=== PATIENT | female | born 1975 | race Caucasian/White ===

== ENCOUNTER 2017-02-14 11:20 | Emergency (ER) | payer SELFPAY ==
[2017-02-14] MEDS ORDERED: LIDOCAINE 2% 10 ML MDV SUBQ STA (12:57)
--- NOTE | 2017-02-14 13:00 | ED Physician Documentation ---
History of Present Illness - Stated complaint Stated Complaint: HAND LAC - Chief complaint Chief Complaint: Laceration - History obtained from History obtained from: Patient - History of Present Illness Timing: Today, How many hours ago (1) Pain level max: 3 Pain level now: 3 - Additonal information Additional information: Patient is a 41-year-old female who cut the dorsal aspect of the right fifth digit on a can today. Bleeding controlled. Tetanus is up-to-date. She is right-handed. Has full range of motion. Better with pressure and worse with movement. Review of Systems Neurologic: denies: Focal weakness, Numbness PD PAST MEDICAL HISTORY - Past Medical History Past Medical History: No Cardiovascular: None Neuro: None Psych: None Musculoskeletal: None - Past Surgical History Past Surgical History: No - Present Medications Home Medications: Ambulatory Orders Medication Instructions Recorded Confirmed HYDROcod/ACETAM 5/325 [[place] 5/325] 1 - 2 ea PO Q6H PRN #15 tablet 12/16/15 - Allergies Allergies/Adverse Reactions: Allergies Allergy/AdvReac Type Severity Reaction Status Date / Time No Known Drug Allergies Allergy Verified 12/16/15 14:53 - Social History Does the pt smoke?: No Smoking Status: Never smoker Does the pt drink ETOH?: Yes ETOH Use: Liquor Does the pt have substance abuse?: No - Immunizations Immunizations are current?: Yes - POLST Patient has POLST: No PD ED PE NORMAL - Vitals Vital signs reviewed: Yes - General General: Alert and oriented X 3, No acute distress - Derm Derm: Warm and dry - Neuro Neuro: Alert and oriented X 3 - Psych Psych: Normal mood PD ED PE EXPANDED - Extremities CONCHA UE/Hands Visual: 1 - laceration (1.5cm, linear, subcutaneous, NVI. No tendon injury.) Results - Vitals Vitals: Vital Signs - 24 hr 02/14/17 02/14/17 11:29 13:30 Temperature 36.9 C 36.3 C L Heart Rate 86 82 Respiratory 14 20 Rate Blood Pressure 103/58 L 107/70 O2 Saturation 94 99 Oxygen O2 Source Room air Procedures - Laceration (location) R 5th digit Length in cm: 1.5 Wound type: Linear, Into subcut fat, Clean Neurovascular status: Sensory intact, Motor intact, Vascular intact Tendon involvement: Tendon intact. No: Tendon Injury Anesthesia: Lidocaine 2% Wound Preparation: Irrigated copiously NS Skin layer closure: Nylon, Size #-0 - enter number (4), Sutures - enter # (3) Other: Patient tolerated well, No complications, Neurovascular intact, Dressing applied, Tetanus UTD Complexity: Simple PD MEDICAL DECISION MAKING - ED course Complexity details: considered differential, d/w patient ED course: Laceration repaired. Tolerated well. Warnings of infection and instructions on wound care given at bedside. Also counseled on how to minimize scarring. Patient counseled regarding signs and symptoms for which I believe and urgent re -evaluation would be necessary. Patient with good understanding of and agreement to plan and is comfortable going home at this time This document was made in part using voice recognition software. While efforts are made to proofread this document, sound alike and grammatical errors may occur. Neurovascularly intact. No tendon injury. Departure - Departure Disposition: 01 Home, Self Care Clinical Impression: Finger laceration Qualifiers: Encounter type: initial encounter Finger: little finger Damage to nail status: without damage Foreign body presence: without foreign body Laterality: right Qualified Code(s): S61.216A - Laceration without foreign body of right little finger without damage to nail, initial encounter Condition: Good Instructions: ED Laceration Hand Follow-Up: your,doctor in 10-14 days for suture removal [Other] Comments: Return if you worsen. You can remove the splint in 2-3 days. Keep the wound clean. Return if you notice redness, swelling or drainage from the wound. The stitches should be removed in 10-14 days either here or with your doctor. Discharge Date/Time: 02/14/17 13:28
[2017-02-14] MEDS ORDERED: BACITRACIN OINT TOP ONE (13:22)
[2017-02-14 13:31] VITALS: BP 107/70
== END 2017-02-14 13:28 | disposition home or self-care (01) ==
LOC: ED 11:20
DX: S61.216A Laceration without foreign body of right little finger without damage to nail, initial encounter (principal); W26.8XXA Contact with other sharp object(s), not elsewhere classified, initial encounter
CPT/HCPCS: 12001; 99282; 99283; A9270

== ENCOUNTER 2017-08-11 12:16 | Emergency (ER) | payer MEDICAID ==
[2017-08-11 12:55] LABS: BASOPHILS % (AUTO) 0.6 %; EOSINOPHILS % (AUTO) 0.4 %; HGB - HEMOGLOBIN 12.4 g/dL (12.0-16.0); LYMPHOCYTES # (AUTO) 1.8 10^3/uL (1.5-3.5); LYMPHOCYTES % (AUTO) 28.5 %; MEAN CORPUSCULAR HEMOGLOBIN 31.3 pg (27.0-31.0); MEAN CORPUSCULAR HGB CONC 33.8 g/dL (32.0-36.0); MEAN CORPUSCULAR VOLUME 92.5 fL (81.0-99.0); MONOCYTES # (AUTO) 0.9 10^3/uL (0.0-1.0); MONOCYTES % (AUTO) 14.9 %; NEUTROPHILS # (AUTO) 3.5 10^3/uL (1.5-6.6); NEUTROPHILS % (AUTO) 55.6 %; PLT - PLATELET COUNT 335 10^3/uL (130-450); RED BLOOD COUNT 3.95 10^6/uL (4.20-5.40); RED CELL DISTRIBUTION WIDTH 13.3 % (12.0-15.0); WHITE BLOOD COUNT 6.2 x10^3/uL (4.8-10.8)
[2017-08-11 13:07] LABS: ALBUMIN 3.9 g/dL (3.2-5.5); BILIRUBIN,TOTAL 0.4 mg/dL (0.2-1.0); CREATININE 0.7 mg/dL (0.4-1.0)
[2017-08-11 13:44] LABS: BILIRUBIN,URINE NEGATIVE (NEGATIVE); GLUCOSE, URINE (UA) NEGATIVE (NEGATIVE); KETONES,URINE (UA) NEGATIVE (NEGATIVE); LEUKOCYTE ESTERASE, URINE SMALL (NEGATIVE); NITRITE,URINE POSITIVE (NEGATIVE); OCCULT BLOOD,URINE LARGE (NEGATIVE); PROTEIN,URINE NEGATIVE (NEGATIVE); UROBILINOGEN,URINE 0.2 (NORMAL) E.U./dL (NORMAL)
[2017-08-11 13:48] LABS: CLARITY,URINE HAZY (CLEAR); HCG UR QUAL NEGATIVE
[2017-08-11 13:57] LABS: BACTERIA,URINE Many /HPF (None Seen); RBC,URINE 0-5 /HPF (0-5); SQUAMOUS EPITHELIAL CELL,UR MOD Squamous (<= Few)
[2017-08-11 13:58] LABS: AMORPHOUS SEDIMENT,UR Few /LPF
[2017-08-11] MEDS ORDERED: SODIUM CHLORIDE 0.9% 1,000 ML IV ONE (14:07)
[2017-08-11] MEDS ORDERED: ONDANSETRON 4 MG/2 ML VIAL IVP STA (14:07)
[2017-08-11] MEDS ORDERED: HYDROmorphone 2 MG/ML VIAL IVP STA (14:07)
[2017-08-11] MEDS ORDERED: cefTRIAXone 2 GM in SODIUM CHLORIDE 0.9% MINIBAG 100 ML IV STA (14:07)
--- NOTE | 2017-08-11 14:10 | ED Physician Documentation ---
PD HPI HEADACHE - Stated complaint Stated Complaint: HEADACHE X 4 DAYS - Chief complaint Chief Complaint: Neuro - History obtained from History obtained from: Patient - History of Present Illness Timing - onset: Other (Over the last 4 days she developed a stomachache in the lower abdomen followed by a gradual onset but now severe headache which is worse than her abdominal pain. She had a fever to 102 last night and has neck stiffness. She has light sensitivity but no vomiting. She denies a history of migraines. She has never had to come to the ER for headache before. She has a very mild sore throat but no runny nose or recent travel.) Review of Systems Constitutional: reports: Fever, Chills, Myalgias, Fatigue Ears: denies: Ear pain, Drainage/discharge Nose: denies: Rhinorrhea / runny nose, Congestion Throat: reports: Sore throat Respiratory: denies: Cough GI: reports: Abdominal Pain. denies: Nausea, Vomiting, Constipation, Diarrhea, Hematemesis : reports: LMP (Just finished her menses, normal time and normal flow.) Skin: denies: Rash, Lesions PD PAST MEDICAL HISTORY - Past Medical History Cardiovascular: None Psych: None Musculoskeletal: None - Past Surgical History Past Surgical History: No - Present Medications Home Medications: Ambulatory Orders Medication Instructions Recorded Confirmed HYDROcod/ACETAM 5/325 [[place] 5/325] 1 - 2 ea PO Q6H PRN #15 tablet 12/16/15 Ciprofloxacin HCl [Cipro] 500 mg PO BID #14 tablet 08/11/17 SUMAtriptan [Imitrex] 25 mg PO BID PRN #10 tablet 08/11/17 - Allergies Allergies/Adverse Reactions: Allergies Allergy/AdvReac Type Severity Reaction Status Date / Time No Known Drug Allergies Allergy Verified 08/11/17 12:23 - Social History Does the pt smoke?: No Smoking Status: Never smoker Does the pt drink ETOH?: Yes Does the pt have substance abuse?: No - Family History Family history: reports: Non contributory - Immunizations Immunizations are current?: Yes - POLST Patient has POLST: No PD ED PE NORMAL - Vitals Vital signs reviewed: Yes (Tachycardic, afebrile) - General General: Alert and oriented X 3, Other (Obviously in pain with a stiff neck) - HEENT HEENT: PERRL, EOMI - Neck Neck: Other (She has overt neck stiffness but is able to touch her chin to her chest.) - Cardiac Cardiac: RRR, No murmur - Respiratory Respiratory: No respiratory distress, Clear bilaterally - Abdomen Abdomen: Other (Mild bilateral pelvic tenderness, left greater than right) - Back Back: No CVA TTP, No spinal TTP - Derm Derm: Normal color, Warm and dry - Extremities Extremities: No deformity, No tenderness to palpate, No edema, No calf tenderness / cord - Neuro Neuro: Alert and oriented X 3 Eye Opening: Spontaneous Motor: Obeys Commands Verbal: Oriented GCS Score: 15 - Psych Psych: Normal mood, Normal affect Results - Vitals Vitals: Vital Signs - 24 hr 08/11/17 08/11/17 08/11/17 12:21 14:31 16:11 Temperature 36.6 C 36.8 C Heart Rate 127 H 88 96 Respiratory 20 14 16 Rate Blood Pressure 136/96 H 117/83 H 98/63 O2 Saturation 94 100 97 08/11/17 08/11/17 08/11/17 16:16 16:27 17:17 Temperature 37.1 C Heart Rate 90 92 Respiratory 16 16 Rate Blood Pressure 98/64 94/61 O2 Saturation 95 95 08/11/17 17:47 Temperature Heart Rate 80 Respiratory 14 Rate Blood Pressure 94/43 L O2 Saturation 95 Oxygen O2 Source Room air - Labs Labs: Laboratory Tests 08/11/17 08/11/17 08/11/17 12:20 12:34 12:34 WBC 6.2 RBC 3.95 L Hgb 12.4 Hct 36.5 L MCV 92.5 MCH 31.3 H MCHC 33.8 RDW 13.3 Plt Count 335 MPV 8.0 Neut # (Auto) 3.5 Lymph # (Auto) 1.8 [place] # (Auto) 0.9 Eos # (Auto) 0.0 Baso # (Auto) 0.0 Absolute Nucleated RBC 0.00 Nucleated RBC % 0.0 Sodium 138 Potassium 3.7 Chloride 104 Carbon Dioxide 27 Anion Gap 7.0 BUN 6 Creatinine 0.7 Estimated GFR (MDRD) 92 Glucose 109 H Lactic Acid Calcium 9.0 Total Bilirubin 0.4 AST 16 ALT 14 Alkaline Phosphatase 40 L Total Protein 8.0 Albumin 3.9 Globulin 4.1 Albumin/Globulin Ratio 1.0 Lipase 30 Urine Color YELLOW Urine Clarity HAZY Urine pH 6.0 Ur Specific [place] 1.020 Urine Protein NEGATIVE Urine Glucose (UA) NEGATIVE Urine Ketones NEGATIVE Urine Occult Blood LARGE H Urine Nitrite POSITIVE H Urine Bilirubin NEGATIVE Urine Urobilinogen 0.2 (NORMAL) Ur Leukocyte Esterase SMALL H Urine RBC 0-5 Urine WBC >25 H Ur Squamous Epith Cells MOD Squamous H Amorphous Sediment Few Urine Bacteria Many H Ur Microscopic Review INDICATED Urine Culture Comments NOT INDICATED Urine HCG, Qual NEGATIVE CSF Color CSF Clarity Xanthrochromic CSF WBC CSF RBC CSF Cell Count Tube # CSF Glucose CSF Total Protein 08/11/17 08/11/17 14:25 16:10 WBC RBC Hgb Hct MCV MCH MCHC RDW Plt Count MPV Neut # (Auto) Lymph # (Auto) [place] # (Auto) Eos # (Auto) Baso # (Auto) Absolute Nucleated RBC Nucleated RBC % Sodium Potassium Chloride Carbon Dioxide Anion Gap BUN Creatinine Estimated GFR (MDRD) Glucose Lactic Acid 0.6 Calcium Total Bilirubin AST ALT Alkaline Phosphatase Total Protein Albumin Globulin Albumin/Globulin Ratio Lipase Urine Color Urine Clarity Urine pH Ur Specific [place] Urine Protein Urine Glucose (UA) Urine Ketones Urine Occult Blood Urine Nitrite Urine Bilirubin Urine Urobilinogen Ur Leukocyte Esterase Urine RBC Urine WBC Ur Squamous Epith Cells Amorphous Sediment Urine Bacteria Ur Microscopic Review Urine Culture Comments Urine HCG, Qual CSF Color COLORLESS CSF Clarity CLEAR Xanthrochromic ABSENT CSF WBC 1 CSF RBC 1 CSF Cell Count Tube # CSF TUBE# 3 CSF Glucose 57 CSF Total Protein 37 - Rads (name of study) CT Head Radiology: EMP read contemporaneously (normal) Procedures - Lumbar Puncture Position: Laying right side Location: L3-L4 Anesthesia: Local lidocaine CSF: Clear Other: Sterile prep and drape, Patient tolerated well, No complications PD MEDICAL DECISION MAKING - ED course ED course: 42-year-old woman presents with headache in the setting of fever and lower abdominal pain and neck stiffness. The foremost concern after my evaluation was meningitis and she was treated with Rocephin. Labs were drawn and notable for infected UA and this was followed by a head CT which was negative and a spinal tap which was also negative. We had difficulty controlling her headache here, Dilaudid, Toradol, and over met were ineffective but after Reglan she was pain-free. - Sepsis Event Vital Signs: Vital Signs - 24 hr 08/11/17 08/11/17 08/11/17 12:21 14:31 16:11 Temperature 36.6 C 36.8 C Heart Rate 127 H 88 96 Respiratory 20 14 16 Rate Blood Pressure 136/96 H 117/83 H 98/63 O2 Saturation 94 100 97 08/11/17 08/11/17 08/11/17 16:16 16:27 17:17 Temperature 37.1 C Heart Rate 90 92 Respiratory 16 16 Rate Blood Pressure 98/64 94/61 O2 Saturation 95 95 08/11/17 17:47 Temperature Heart Rate 80 Respiratory 14 Rate Blood Pressure 94/43 L O2 Saturation 95 Oxygen O2 Source Room air Departure - Departure Disposition: 01 Home, Self Care Clinical Impression: UTI (urinary tract infection) Qualifiers: Urinary tract infection type: acute pyelonephritis Qualified Code(s): N10 - Acute pyelonephritis Migraine Qualifiers: Migraine type: without aura Status migrainosus presence: with status migrainosus Intractability: not intractable Qualified Code(s): G43.001 - Migraine without aura, not intractable, with status migrainosus Condition: Stable Instructions: ED UTI Pyelonephritis Male Prescriptions: Ciprofloxacin HCl [Cipro] 500 mg PO BID #14 tablet SUMAtriptan [Imitrex] 25 mg PO BID PRN #10 tablet PRN Reason: Headache Comments: Call your doctor to arrange a follow-up appointment, make the next available appointment. In the interim, return anytime if worse or if new symptoms develop. We will culture your urine, the results should be done in 48-72 hours. If an antibiotic change is necessary we will call you. Return if worse in the meantime, especially if you develop increasing flank pain, fevers, or cannot keep down the medication. Forms: Activity restrictions Discharge Date/Time: 08/11/17 17:48
[2017-08-11] MEDS ORDERED: KETOROLAC 60 MG/2 ML VIAL IVP STA (15:11)
[2017-08-11] MEDS ORDERED: LORazepam 2 MG/ML VIAL IVP STA (15:38)
--- NOTE | 2017-08-11 15:42 | CT Report ---
Procedure Date: 08/11/2017 Accession Number: [id number] / [id number] Procedure: CT - Head W/O CPT Code: FULL RESULT: EXAM: CT HEAD EXAM DATE: 08/11/2017 03:17 PM. CLINICAL HISTORY: Headache, fever. COMPARISON: None. TECHNIQUE: Multiaxial CT images were obtained from the foramen magnum to the vertex. Reformats: Coronal. IV contrast: None. In accordance with CT protocol optimization, one or more of the following dose reduction techniques were utilized for this exam: automated exposure control, adjustment of mA and/or KV based on patient size, or use of iterative reconstructive technique. FINDINGS: Parenchyma: No intraparenchymal hemorrhage. No evidence of mass, midline shift, or CT findings of infarction. Sánchez-white differentiation is distinct. Extraaxial Spaces: Normal for age. No subdural or epidural collections identified. Ventricles: Normal in size and position. Sinuses and Orbits: Imaged paranasal sinuses, orbits, and mastoids show no significant abnormality. Bones: No evidence of fracture or calvarial defect. Other: None. IMPRESSION: No acute intracranial abnormality. RADIA
[2017-08-11] MEDS ORDERED: ACETAMINOPHEN 1,000 MG/100 ML 100 ML IV STA (16:12)
[2017-08-11 16:43] LABS: CSF - GLUCOSE 57 mg/dL (45-70)
[2017-08-11 16:50] LABS: CLARITY,CSF CLEAR (CLEAR); CSF TUBE # CSF TUBE# 3
[2017-08-11 16:51] LABS: COLOR,CSF COLORLESS (COLORLESS); CSF XANTHOCHROMIA ABSENT (ABSENT); RED BLOOD CELL,CSF 1 /mm^3 (0-1); WHITE BLOOD CELL,CSF 1 /mm^3 (0-5)
[2017-08-11] MEDS ORDERED: METOCLOPRAMIDE 10 MG/2 ML VIAL IVP STA (16:56)
[2017-08-11 17:48] VITALS: BP 94/43
--- NOTE | 2017-08-12 11:24 | ED Physician Documentation ---
ED Addendum - Addendum Addendum: 08/12/17 11:22 She contacted me this morning- headache unctrolled with imitrex. OTCs helping somewhat. I offered to see her again in the ED, but would rather try something else at home. I called in to [facility]: Reglan 10mg PO q6hr PRN headache, #10 and Fioricet 1 tab q2hr PRN headache #15
--- NOTE | 2017-08-13 16:19 | ED Physician Documentation ---
ED Addendum - Addendum Addendum: 08/13/17 16:18 Now with joint pains/tendon Pains bilaterally, I wonder if it might be the Cipro. Her headache is much better today. Cultures reviewed and we will change her from Cipro to Bactrim DS 1 tab p.o. twice daily for 7 days and this was called into [facility].
== END 2017-08-11 17:48 | disposition home or self-care (01) ==
LOC: ED 12:16
DX: G43.909 Migraine, unspecified, not intractable, without status migrainosus (principal); N10 Acute pyelonephritis; M25.50 Pain in unspecified joint
CPT/HCPCS: 36415; 62270; 70450; 80053; 81001; 81025; 82945; 83605; 83690; 84157; 85025; 87040; 87070; 87086; 87181; 87205; 89051; 96365; 96375; 99284; J0131; J1170; J2060; J2765; 81003

== ENCOUNTER 2017-08-14 20:38 | Emergency (ER) | payer MEDICAID ==
[2017-08-14] MEDS ORDERED: SODIUM CHLORIDE 0.9% 1,000 ML IV ONE ×2 (20:59→22:13)
[2017-08-14] MEDS ORDERED: diphenhydrAMINE INJ 50 MG/ML VIAL IVP STA (21:23)
[2017-08-14] MEDS ORDERED: PROCHLORPERAZINE 10 MG/2 ML VIAL IVP STA (21:23)
[2017-08-14] MEDS ORDERED: KETOROLAC 60 MG/2 ML VIAL IVP STA (21:23)
[2017-08-14 21:27] LABS: BASOPHILS % (AUTO) 0.3 %; EOSINOPHILS # (AUTO) 0.2 10^3/uL (0.0-0.7); EOSINOPHILS % (AUTO) 2.7 %; MEAN CORPUSCULAR HEMOGLOBIN 30.4 pg (27.0-31.0); MEAN CORPUSCULAR HGB CONC 33.5 g/dL (32.0-36.0); MEAN CORPUSCULAR VOLUME 90.8 fL (81.0-99.0); MEAN PLATELET VOLUME 7.6 fL (7.9-10.8); MONOCYTES # (AUTO) 0.5 10^3/uL (0.0-1.0); MONOCYTES % (AUTO) 9.2 %; NEUTROPHILS # (AUTO) 3.9 10^3/uL (1.5-6.6); NEUTROPHILS % (AUTO) 69.8 %; PLT - PLATELET COUNT 375 10^3/uL (130-450); RED BLOOD COUNT 3.95 10^6/uL (4.20-5.40); RED CELL DISTRIBUTION WIDTH 13.3 % (12.0-15.0); WHITE BLOOD COUNT 5.6 x10^3/uL (4.8-10.8)
[2017-08-14 21:40] LABS: ALBUMIN 3.9 g/dL (3.2-5.5); ALBUMIN/GLOBULIN RATIO 1.1 (1.0-2.2); BILIRUBIN,TOTAL 0.4 mg/dL (0.2-1.0); CREATININE 0.8 mg/dL (0.4-1.0); TOTAL PROTEIN 7.5 g/dL (6.7-8.2)
[2017-08-14] MEDS ORDERED: CAFFEINE/SODIUM BENZOATE 500 MG in SODIUM CHLORIDE 0.9% 1,000 ML IV STA (22:14)
[2017-08-14 22:18] LABS: BILIRUBIN,URINE NEGATIVE (NEGATIVE); GLUCOSE, URINE (UA) NEGATIVE (NEGATIVE); KETONES,URINE (UA) NEGATIVE (NEGATIVE); LEUKOCYTE ESTERASE, URINE NEGATIVE (NEGATIVE); NITRITE,URINE NEGATIVE (NEGATIVE); OCCULT BLOOD,URINE SMALL (NEGATIVE); PROTEIN,URINE NEGATIVE (NEGATIVE); UROBILINOGEN,URINE 0.2 (NORMAL) E.U./dL (NORMAL)
[2017-08-14 22:22] LABS: CLARITY,URINE HAZY (CLEAR)
[2017-08-14 22:30] LABS: BACTERIA,URINE Rare /HPF (None Seen); SQUAMOUS EPITHELIAL CELL,UR MOD Squamous (<= Few)
[2017-08-14] MEDS ORDERED: cefTRIAXone 1 GM VIAL IVP STA (22:34)
[2017-08-14] MEDS ORDERED: CAFFEINE/SODIUM BENZOATE 500 MG/2 ML VIAL IV ONE (22:37)
[2017-08-15 00:41] VITALS: BP 116/79
--- NOTE | 2017-08-15 10:24 | ED Physician Documentation ---
History of Present Illness - Stated complaint Stated Complaint: FEVER/HEADACHE - Chief complaint Chief Complaint: General - History obtained from History obtained from: Patient, Family - History of Present Illness Timing: How many days ago (several) Pain level max: 10 Pain level now: 10 Improved by: dark room, quiet Worsened by: light, noise - Additonal information Additional information: Patient is a 42-year-old female who was recently seen here for fever, neck stiffness and had a lumbar puncture. Since that time she has had intermittent headaches. Today the headache became severe. Does not usually have headaches. States that she had a fever today at home. Is currently on Bactrim for UTI. Denies any abdominal, back or flank pain to me. Denies any vomiting. Denies any possibility of . Review of Systems Ten Systems: 10 systems reviewed and negative Constitutional: denies: Chills, Myalgias Eyes: reports: Photophobia Ears: denies: Ear pain Nose: denies: Rhinorrhea / runny nose, Congestion Throat: denies: Sore throat Cardiac: denies: Chest pain / pressure Respiratory: denies: Cough GI: denies: Abdominal Pain, Nausea, Vomiting, Diarrhea : denies: Now EGA Skin: denies: Rash Musculoskeletal: denies: Neck pain, Back pain Neurologic: denies: Focal weakness, Confused, Altered mental status, LOC PD PAST MEDICAL HISTORY - Past Medical History Past Medical History: Yes Cardiovascular: None Neuro: Migraines Psych: None Musculoskeletal: None - Past Surgical History Past Surgical History: No - Present Medications Home Medications: Ambulatory Orders Medication Instructions Recorded Confirmed SUMAtriptan [Imitrex] 25 mg PO BID PRN #10 tablet 08/11/17 - Allergies Allergies/Adverse Reactions: Allergies Allergy/AdvReac Type Severity Reaction Status Date / Time No Known Drug Allergies Allergy Verified 08/14/17 20:48 - Social History Does the pt smoke?: No Smoking Status: Never smoker Does the pt drink ETOH?: Yes Does the pt have substance abuse?: No - Immunizations Immunizations are current?: Yes - POLST Patient has POLST: No PD ED PE NORMAL - Vitals Vital signs reviewed: Yes - General General: Alert and oriented X 3, Other (Lying in the room with a towel over her head) - HEENT HEENT: Atraumatic, PERRL, EOMI, Moist mucous membranes, Other (+photophobia) - Neck Neck: Supple, no meningeal sign - Cardiac Cardiac: RRR, Strong equal pulses - Respiratory Respiratory: No respiratory distress, Clear bilaterally - Abdomen Abdomen: Soft, Non tender, Non distended - Back Back: No spinal TTP - Derm Derm: Warm and dry - Extremities Extremities: No edema - Neuro Neuro: Alert and oriented X 3, central office associate 2-12 intact, No motor deficit, No sensory deficit, Normal speech Eye Opening: Spontaneous Motor: Obeys Commands Verbal: Oriented GCS Score: 15 Results - Vitals Vitals: Vital Signs - 24 hr 08/14/17 08/14/17 08/14/17 20:39 22:30 23:23 Temperature 37.5 C Heart Rate 122 H 86 Respiratory 20 16 16 Rate Blood Pressure 116/70 88/55 L O2 Saturation 97 99 08/15/17 00:05 Temperature Heart Rate 79 Respiratory 16 Rate Blood Pressure 116/79 O2 Saturation 98 Oxygen O2 Source Room air - Labs Labs: Laboratory Tests 08/14/17 08/14/17 08/14/17 21:22 21:22 21:22 WBC 5.6 RBC 3.95 L Hgb 12.0 Hct 35.9 L MCV 90.8 MCH 30.4 MCHC 33.5 RDW 13.3 Plt Count 375 MPV 7.6 L Neut # (Auto) 3.9 Lymph # (Auto) 1.0 L [place] # (Auto) 0.5 Eos # (Auto) 0.2 Baso # (Auto) 0.0 Absolute Nucleated RBC 0.00 Nucleated RBC % 0.0 Sodium 136 Potassium 3.5 Chloride 101 Carbon Dioxide 26 Anion Gap 9.0 BUN 5 L Creatinine 0.8 Estimated GFR (MDRD) 79 L Glucose 88 Lactic Acid 1.2 Calcium 9.0 Total Bilirubin 0.4 AST 18 ALT 15 Alkaline Phosphatase 38 L Total Protein 7.5 Albumin 3.9 Globulin 3.6 Albumin/Globulin Ratio 1.1 Lipase 33 Urine Color Urine Clarity Urine pH Ur Specific [place] Urine Protein Urine Glucose (UA) Urine Ketones Urine Occult Blood Urine Nitrite Urine Bilirubin Urine Urobilinogen Ur Leukocyte Esterase Urine RBC Urine WBC Ur Squamous Epith Cells Urine Bacteria Ur Microscopic Review Urine Culture Comments 08/14/17 22:05 WBC RBC Hgb Hct MCV MCH MCHC RDW Plt Count MPV Neut # (Auto) Lymph # (Auto) [place] # (Auto) Eos # (Auto) Baso # (Auto) Absolute Nucleated RBC Nucleated RBC % Sodium Potassium Chloride Carbon Dioxide Anion Gap BUN Creatinine Estimated GFR (MDRD) Glucose Lactic Acid Calcium Total Bilirubin AST ALT Alkaline Phosphatase Total Protein Albumin Globulin Albumin/Globulin Ratio Lipase Urine Color LT. YELLOW Urine Clarity HAZY Urine pH 7.0 Ur Specific [place] 1.010 Urine Protein NEGATIVE Urine Glucose (UA) NEGATIVE Urine Ketones NEGATIVE Urine Occult Blood SMALL H Urine Nitrite NEGATIVE Urine Bilirubin NEGATIVE Urine Urobilinogen 0.2 (NORMAL) Ur Leukocyte Esterase NEGATIVE Urine RBC 11-25 H Urine WBC 0-3 Ur Squamous Epith Cells MOD Squamous H Urine Bacteria Rare Ur Microscopic Review INDICATED Urine Culture Comments NOT INDICATED PD MEDICAL DECISION MAKING - ED course Complexity details: reviewed old records, reviewed results, re-evaluated patient , considered differential, d/w patient, d/w family ED course: Patient is a 42-year-old female who presents to the emergency department with a headache. Unclear if this is a post lumbar puncture headache versus a migraine headache. She was given Toradol, Compazine, Benadryl as well as IV fluids. Headache improved. Was then given IV caffeine and headache resolved. States that she feels much better. Denies any abdominal pain, back pain. No evidence of ureteral stones. No evidence of infected stone. Normal lactate. Given IV Rocephin while she is in the emergency department for her UTI that she was recently diagnosed with. We will have her continue her medications at home and follow-up closely with her doctor. Patient and family counseled regarding signs and symptoms for which I believe and urgent re-evaluation would be necessary. Patient with good understanding of and agreement to plan and is comfortable going home at this time This document was made in part using voice recognition software. While efforts are made to proofread this document, sound alike and grammatical errors may occur. No evidence of subarachnoid hemorrhage, tumor, mass. - Sepsis Event Vital Signs: Vital Signs - 24 hr 08/14/17 08/14/17 08/14/17 20:39 22:30 23:23 Temperature 37.5 C Heart Rate 122 H 86 Respiratory 20 16 16 Rate Blood Pressure 116/70 88/55 L O2 Saturation 97 99 08/15/17 00:05 Temperature Heart Rate 79 Respiratory 16 Rate Blood Pressure 116/79 O2 Saturation 98 Oxygen O2 Source Room air Departure - Departure Disposition: 01 Home, Self Care Clinical Impression: Post lumbar puncture headache UTI (urinary tract infection) Qualifiers: Urinary tract infection type: acute cystitis Hematuria presence: with hematuria Qualified Code(s): N30.01 - Acute cystitis with hematuria Condition: Good Instructions: ED Headache Post Spinal Tap No Patc Follow-Up: your,doctor in 3 days [Other] Comments: Return if you worsen. Follow-up with your doctor for recheck in a few days. Continue your medications as previously prescribed. Discharge Date/Time: 08/15/17 00:05
--- NOTE | 2017-08-17 16:34 | ED Physician Documentation ---
ED Addendum - Addendum Addendum: 08/17/17 16:32 She was still having persistent headaches, I called in a prescription at her request to [facility] for Fioricet, 1 tab every 2 hours as needed headache #10 no refills and Reglan 10 mg every 6 hours as needed for headache #20.
== END 2017-08-15 00:05 | disposition home or self-care (01) ==
LOC: ED 20:38
DX: G97.1 Other reaction to spinal and lumbar puncture (principal); N30.01 Acute cystitis with hematuria
CPT/HCPCS: 36415; 80053; 81001; 83605; 83690; 85025; 96361; 96365; 96375; 99283; 99284; J1200; 81003; 87086

== ENCOUNTER 2017-10-19 12:07 | Outpatient (CLI) | payer MEDICAID ==
[2017-10-19 12:42] LABS: BASOPHILS % (AUTO) 0.6 %; EOSINOPHILS # (AUTO) 0.1 10^3/uL (0.0-0.7); HGB - HEMOGLOBIN 11.9 g/dL (12.0-16.0); LYMPHOCYTES # (AUTO) 1.8 10^3/uL (1.5-3.5); LYMPHOCYTES % (AUTO) 37.4 %; MEAN CORPUSCULAR HEMOGLOBIN 29.9 pg (27.0-31.0); MEAN CORPUSCULAR HGB CONC 34.2 g/dL (32.0-36.0); MEAN CORPUSCULAR VOLUME 87.4 fL (81.0-99.0); MEAN PLATELET VOLUME 7.5 fL (7.9-10.8); MONOCYTES # (AUTO) 0.6 10^3/uL (0.0-1.0); NEUTROPHILS # (AUTO) 2.4 10^3/uL (1.5-6.6); PLT - PLATELET COUNT 287 10^3/uL (130-450); RED BLOOD COUNT 3.97 10^6/uL (4.20-5.40); WHITE BLOOD COUNT 4.9 x10^3/uL (4.8-10.8)
[2017-10-19 12:47] LABS: BILIRUBIN,URINE NEGATIVE (NEGATIVE); GLUCOSE, URINE (UA) NEGATIVE (NEGATIVE); KETONES,URINE (UA) NEGATIVE (NEGATIVE); LEUKOCYTE ESTERASE, URINE NEGATIVE (NEGATIVE); NITRITE,URINE NEGATIVE (NEGATIVE); OCCULT BLOOD,URINE SMALL (NEGATIVE); PROTEIN,URINE NEGATIVE (NEGATIVE); UROBILINOGEN,URINE 0.2 (NORMAL) E.U./dL (NORMAL)
[2017-10-19 12:48] LABS: CLARITY,URINE CLOUDY (CLEAR)
[2017-10-19 13:01] LABS: ALBUMIN 4.2 g/dL (3.2-5.5); ALBUMIN/GLOBULIN RATIO 1.2 (1.0-2.2); ALKALINE PHOSPHATASE 30 IU/L (42-121); ALT ALANINE AMINOTRANSFERASE 15 IU/L (10-60); AST ASPARTATE AMINOTRANSFERASE 18 IU/L (10-42); BILIRUBIN,TOTAL 0.5 mg/dL (0.2-1.0); BUN - BLOOD UREA NITROGEN 10 mg/dL (6-20); CALCIUM 9.1 mg/dL (8.5-10.3); CARBON DIOXIDE - CO2 25 mmol/L (21-32); CHLORIDE 104 mmol/L (101-111); CREATININE 0.7 mg/dL (0.4-1.0); GFR - MDRD 92 (>89); GLUCOSE 79 mg/dL (70-100); SODIUM 135 mmol/L (135-145); TOTAL PROTEIN 7.6 g/dL (6.7-8.2)
[2017-10-19 13:22] LABS: CRP - C-REACTIVE PROTEIN < 1.0 mg/dL (0-1.0)
[2017-10-19 13:38] LABS: RHEUMATOID FACTOR NEGATIVE (Negative)
[2017-10-19 13:44] LABS: RBC,URINE 0-5 /HPF (0-5)
[2017-10-19 13:45] LABS: BACTERIA,URINE Few /HPF (None Seen); SQUAMOUS EPITHELIAL CELL,UR FEW Squamous (<= Few)
== END 2017-10-19 12:08 | disposition home or self-care (01) ==
LOC: LAB 12:07
PROVIDERS: ATTEND Nurse Practitioner Family
DX: R23.3 Spontaneous ecchymoses (principal); R30.0 Dysuria; G47.00 Insomnia, unspecified
CPT/HCPCS: 36415; 80053; 81001; 84443; 85025; 85610; 85651; 86038; 86140; 86430; 87086

== ENCOUNTER 2017-11-27 15:06 | Outpatient (CLI) | payer MEDICAID ==
--- NOTE | 2017-11-27 17:05 | XRAY Report ---
Reason: FIBROMYALGIA Procedure Date: 11/27/2017 Accession Number: [id number] / [id number] Procedure: XRN - Chest 2 View X-Ray CPT Code: 91076 FULL RESULT: EXAM: CHEST RADIOGRAPHY EXAM DATE: 11/27/2017 03:23 PM. CLINICAL HISTORY: FIBROMYALGIA. COMPARISON: None. TECHNIQUE: 2 views. FINDINGS: Lungs/Pleura: No focal opacities evident. No pleural effusion. No pneumothorax. Normal volumes. Mediastinum: Heart and mediastinal contours are unremarkable. Other: Negative bony structures. IMPRESSION: Normal 2-view chest radiography. RADIA
== END 2017-11-27 15:07 | disposition home or self-care (01) ==
LOC: DI.N 15:06
PROVIDERS: ATTEND Nurse Practitioner Family
DX: M79.7 Fibromyalgia (principal)
CPT/HCPCS: 71046

== ENCOUNTER 2020-02-10 11:45 | Outpatient (CLI) | payer MEDICAID | END 2020-02-10 23:59 | disposition home or self-care (01) | LOC: LAB.R 11:45 | PROVIDERS: ATTEND Family Medicine | DX: N39.0 Urinary tract infection, site not specified (principal) | CPT/HCPCS: 87086; 87181 ==

== ENCOUNTER 2020-11-30 14:03 | Outpatient (CLI) | payer MEDICAID ==
--- NOTE | 2020-11-30 14:36 | XRAY Report ---
PROCEDURE: Chest 2 View X-Ray INDICATIONS: PRODUCTIVE COUGH TECHNIQUE: 2 view(s) of the chest. COMPARISON: None. FINDINGS: SUPPORT DEVICES: None. LUNG/PLEURA: No focal consolidation or pulmonary edema. No pleural effusion or space-occupying pneumo thorax. MEDIASTINUM: The cardiomediastinal silhouette is within normal limits. BONES/SOFT TISSUES: No acute abnormality. IMPRESSION: 1.No acute cardiopulmonary abnormality. Reviewed by: Devang Stack MD on 11/30/2020 2:34 PM PDT Approved by: Devang Stack MD on 11/30/2020 2:34 PM PDT Station ID: [id number]
== END 2020-11-30 23:59 ==
LOC: DI.N 14:03
PROVIDERS: ATTEND Physician Assistant Medical
DX: R05.9 Cough, unspecified (principal); Z20.822 Contact with and (suspected) exposure to COVID-19

== ENCOUNTER 2022-04-18 08:21 | Outpatient (CLI) | payer MEDICAID ==
--- NOTE | 2022-04-18 11:10 | XRAY Report ---
PROCEDURE: Finger(s) RT INDICATIONS: CONTUSION OF RIGHT THUMB WITHOUT DAMAGE TO NAIL TECHNIQUE: AP hand, 2 views of the first finger(s) acquired. COMPARISON: None FINDINGS: Bones: Mild cortical step off along the ulnar side of the distal first phalanx base, only seen on one view. Soft tissues: No suspicious soft tissue calcifications. IMPRESSION: Mild cortical step off along the ulnar side of the distal first phalanx base, only seen on one view. Findings could represent artifact or minimally displaced fracture. Correlate with point tenderness. Reviewed by: Moncho Schneiedr on 04/18/2022 11:09 AM [facility] Approved by: Moncho Schneider on 04/18/2022 11:09 AM [facility] Station ID: [id number]
== END 2022-04-18 08:22 | disposition home or self-care (01) ==
LOC: DI 08:21
PROVIDERS: ATTEND Physician Assistant Medical
DX: S60.011A Contusion of right thumb without damage to nail, initial encounter (principal)